=== PATIENT | female | born 1940 | race Caucasian/White ===

== ENCOUNTER 2018-11-09 08:14 | Emergency (ER) | payer MEDICARE, MEDICAID ==
[~2018-11-09] VITALS: Ht 157.5 cm; Wt 64.6 kg
[2018-11-09 08:38] VITALS: BP 143/82
[2018-11-09] MEDS ORDERED: ipratropium/albuterol 3ml nebule NEB ONE (08:55)
[2018-11-09] MEDS ORDERED: ALBU8HFA PO (09:51)
[2018-11-10] MEDS ORDERED: ASPI-1265 PO (15:18)
[2018-11-10] MEDS ORDERED: BUDE10.2 INH (15:18)
[2018-11-10] MEDS ORDERED: AMLO-93 PO (15:18)
[2018-11-10] MEDS ORDERED: SYN0.088T PO (15:18)
[2018-11-10] MEDS ORDERED: LISI-600 PO (15:18)
[2018-11-10] MEDS ORDERED: OMEP40CA37 PO (15:18)
[2018-11-10] MEDS ORDERED: AMLO5TAB PO (16:28)
== END 2018-11-09 10:22 | disposition home or self-care (01) ==
LOC: ER 08:14
DX: J44.1 Chronic obstructive pulmonary disease with (acute) exacerbation (principal); Z79.899 Other long term (current) drug therapy
CPT/HCPCS: 94640; 94760; 99283

== ENCOUNTER 2018-11-09 20:39 | Inpatient (IN) | payer MEDICARE, MEDICAID ==
[~2018-11-09] VITALS: Ht 165.1 cm; Wt 75.0 kg
[~2018-11-09 20:39] MED LIST: ALBU8HFA PO
[2018-11-09] MEDS ORDERED: ondansetron/PF 4mg/2ml inj IV ONE (20:45)
[2018-11-09] MEDS ORDERED: normal saline 1000ML IV soln IVB ONE (20:45)
[2018-11-09] MEDS ORDERED: iohexol 350MG/ML 100ml bottle IV ONE (20:49)
[2018-11-09] MEDS: fentaNYL/PF 50MCG/1 ML 2ML syringe IV PRN ×2 (20:56→23:18)
[2018-11-09] MEDS ORDERED: temazepam 15mg capsule PO PRN (21:00)
[2018-11-09 21:14] LABS: ALANINE AMINOTRANSFERASE 15 U/L (12-78); ALBUMIN 3.4 G/DL (3.4-5.0); ALBUMIN/GLOBULIN RATIO 1.1 (1.1-1.5); ALKALINE PHOSPHATASE 71 IU/L (46-116); ANION GAP 15 (8-16); ASPARTATE AMINO TRANSFERASE 23 U/L (10-37); BILIRUBIN,TOTAL 0.4 MG/DL (0.1-1.0); BLOOD UREA NITROGEN 15 MG/DL (7-18); BUN/CREATININE RATIO 14.4 (6.6-38.0); CALCIUM 8.3 MG/DL (8.5-10.1); CHLORIDE 104 MMOL/L (99-107); CREATININE 1.04 MG/DL (0.40-0.90); GLUCOSE 130 MG/DL (70-104); LIPASE 162 U/L (73-393); POTASSIUM 3.1 MMOL/L (3.5-5.1); SODIUM 139 MMOL/L (135-145); TOTAL CARBON DIOXIDE 20.5 MMOL/L (24-32); TOTAL PROTEIN 6.5 G/DL (6.4-8.2); eGFR 51 ML/MIN
[2018-11-09 21:43] LABS: BASOPHILS % (AUTO) 0.1 % (0-1); EOSINOPHILS # (AUTO) 0.2 X10'3 (0-0.9); EOSINOPHILS % (AUTO) 2.5 % (0-6); HEMATOCRIT 30.7 % (35.0-45.0); HEMOGLOBIN 10.5 g/dl (12.0-16.0); LYMPHOCYTES # (AUTO) 1.4 X10'3 (1.1-4.8); LYMPHOCYTES % (AUTO) 18.4 % (21-51); MEAN CORPUSCULAR HEMOGLOBIN 30.8 PG (27.0-31.0); MEAN CORPUSCULAR VOLUME 90.5 FL (78-98); MEAN PLATELET VOLUME 6.6 FL (7.4-10.4); MONOCYTES # (AUTO) 0.8 X10'3 (0-0.9); MONOCYTES % (AUTO) 9.8 % (2-12); NEUTROPHILS # (AUTO) 5.3 X10'3 (1.8-7.7); NEUTROPHILS % (AUTO) 69.2 % (42-75); PLATELET COUNT 241 X10'3 (140-440); RED CELL DISTRIBUTION WIDTH 13.3 % (11.5-14.5); WHITE BLOOD COUNT 7.7 X10'3 (4.5-11.0)
[2018-11-09] MEDS ORDERED: potassium Cl 20 mEq SR tablet PO STA (21:57)
[2018-11-09] MEDS ORDERED: aspirin 81mg tab.chew PO ONE (22:35)
[2018-11-09] MEDS ORDERED: heparin 10,000 units/1 ML INJ IV ONE ×2 (22:45→22:50)
[2018-11-09] MEDS ORDERED: heparin 10,000 units/1 ML INJ IV PRN (22:45)
[2018-11-09] MEDS: heparin 25,000 UNIT/250ml bag 250 ML IV SCH (23:11)
[2018-11-09 23:29] LABS: INR 1.1 INR; PARTIAL THROMBOPLASTIN TIME 24 SECONDS (22-32); PROTHROMBIN TIME 10.8 SECONDS (9.0-12.0)
[2018-11-09] MEDS ORDERED: potassium Cl 40MEQ/NS 500ml 500 ML IV PRN ×2 (23:45)
[2018-11-09] MEDS ORDERED: morphine 4 MG/ML inj SYRINge IV PRN (23:45)
[2018-11-09] MEDS ORDERED: magnesium hydroxide 30ml (MOM) UD suspension PO PRN (23:45)
[2018-11-09] MEDS ORDERED: bisacodyl 10mg suppository rectal RC PRN (23:45)
[2018-11-09] MEDS ORDERED: diphenhydrAMINE 25mg capsule PO PRN (23:45)
[2018-11-09] MEDS ORDERED: potassium Cl 20 mEq SR tablet PO PRN ×2 (23:45)
[2018-11-09] MEDS ORDERED: HYDROcodone/acetaminophen 10/325mg tab PO PRN (23:45)
[2018-11-09] MEDS ORDERED: metoclopramide 5 mg/ml inj IV PRN (23:45)
[2018-11-09] MEDS ORDERED: acetaminophen 325mg tablet PO PRN ×2 (23:45)
[2018-11-09] MEDS ORDERED: acetaminophen 650mg rectal suppository RC PRN (23:45)
[2018-11-09] MEDS ORDERED: diphenhydrAMINE 50 mg/ml inj IV PRN (23:45)
[2018-11-09] MEDS ORDERED: mag hydrox/Alum hydrox/simeth 30ml oral suspension PO PRN (23:45)
[2018-11-09] MEDS ORDERED: HYDROmorphone 1 mg/ml syringe IV PRN (23:45)
[2018-11-09] MEDS ORDERED: ondansetron/PF 4mg/2ml inj IV PRN (23:45)
[2018-11-09] MEDS ORDERED: loperamide 2mg capsule PO PRN (23:50)
[2018-11-10] VITALS (15 sets, daily range): BP systolic 102–140; BP diastolic 46–69
[2018-11-10 00:11] LABS: HEMOGLOBIN A1C 5.8 % (4.5-6.2)
[2018-11-10] MEDS: potassium Cl 20mEq in NS 1,000 ML IV SCH ×3 (00:57→21:46)
[2018-11-10 01:09] LABS: CREATINE KINASE 149 U/L (26-192)
[2018-11-10 02:16] LABS: CLARITY,URINE CLEAR (Clear); COLOR,URINE YELLOW (Yellow); GLUCOSE, URINE NEGATIVE (Neg); KETONES,URINE 15 mg/dl (Neg); LEUKOCYTE ESTERASE ,URINE NEGATIVE (Neg); NITRITES, URINE NEGATIVE (Neg); OCCULT BLOOD,URINE NEGATIVE (Neg); PH,URINE 5.5 (4.8-8.0); PROTEIN,URINE NEGATIVE (Neg); UROBILINOGEN,URINE 0.2 E.U/dL (0.2-1.0)
[2018-11-10 02:17] LABS: UA COLLECTION TYPE FOLEY CATH
[2018-11-10 05:44] LABS: ALANINE AMINOTRANSFERASE 16 U/L (12-78); ALBUMIN 3.2 G/DL (3.4-5.0); ALKALINE PHOSPHATASE 64 IU/L (46-116); ANION GAP 10 (8-16); ASPARTATE AMINO TRANSFERASE 18 U/L (10-37); BILIRUBIN,TOTAL 0.5 MG/DL (0.1-1.0); BLOOD UREA NITROGEN 13 MG/DL (7-18); BUN/CREATININE RATIO 16.3 (6.6-38.0); CALCIUM 7.9 MG/DL (8.5-10.1); CHLORIDE 106 MMOL/L (99-107); CHOL/HDL RATIO 3.4 (0.00-4.99); CHOLESTEROL 225 MG/DL (0-200); GLUCOSE 116 MG/DL (70-104); HDL CHOLESTEROL 66 MG/DL (35-60); LDL CHOLESTEROL 150 MG/DL (50-100); POTASSIUM 4.4 MMOL/L (3.5-5.1); SODIUM 139 MMOL/L (135-145); TOTAL CARBON DIOXIDE 22.9 MMOL/L (24-32); TOTAL PROTEIN 6.4 G/DL (6.4-8.2); TRIGLYCERIDES 18 MG/DL (20-135); eGFR 69 ML/MIN
[2018-11-10 05:48] LABS: BASOPHILS % (AUTO) 0.1 % (0-1); EOSINOPHILS # (AUTO) 0.1 X10'3 (0-0.9); EOSINOPHILS % (AUTO) 1.2 % (0-6); HEMOGLOBIN 12.3 g/dl (12.0-16.0); LYMPHOCYTES # (AUTO) 0.5 X10'3 (1.1-4.8); MEAN CORPUSCULAR HEMOGLOBIN 30.9 PG (27.0-31.0); MEAN CORPUSCULAR HGB CONC 34.1 % (33.0-36.5); MEAN CORPUSCULAR VOLUME 90.7 FL (78-98); MEAN PLATELET VOLUME 6.8 FL (7.4-10.4); MONOCYTES # (AUTO) 0.6 X10'3 (0-0.9); MONOCYTES % (AUTO) 5.6 % (2-12); NEUTROPHILS # (AUTO) 9.5 X10'3 (1.8-7.7); NEUTROPHILS % (AUTO) 88.1 % (42-75); PLATELET COUNT 274 X10'3 (140-440); RED BLOOD COUNT 3.97 X10'6 (4.20-5.60); RED CELL DISTRIBUTION WIDTH 13.4 % (11.5-14.5); WHITE BLOOD COUNT 10.8 X10'3 (4.5-11.0)
[2018-11-10] MEDS: heparin 25,000 UNIT/250ml bag 250 ML IV SCH (07:10)
[2018-11-10] MEDS ORDERED: pantoprazole 40 MG vial IV SCH (08:00)
[2018-11-10] MEDS: K and/or MAG REPLACEMENT MC SCH (08:00)
[2018-11-10] MEDS: docusate sod 100mg capsule PO SCH ×2 (08:00→19:00)
[2018-11-10] MEDS: lisinopril 5mg tablet PO SCH (08:00)
[2018-11-10] MEDS ORDERED: atorvastatin 10mg tablet PO SCH (08:00)
[2018-11-10] MEDS ORDERED: aspirin 81mg tab.chew PO SCH (08:00)
[2018-11-10] MEDS: nitroGLYCERIN 0.1mg/hour patch TD SCH (08:00)
[2018-11-10] MEDS ORDERED: aminophylline 250mg/10ml inj. IV PRN (09:10)
[2018-11-10] MEDS ORDERED: nitroGLYCERIN 0.4mg SUBLingual tab SL PRN (09:10)
[2018-11-10] MEDS ORDERED: LORazepam 0.5 MG tablet PO PRN (09:10)
[2018-11-10] MEDS ORDERED: regadenoson 0.4mg/5ml syringe IV ONE ×2 (09:10→12:51)
[2018-11-10] MEDS ORDERED: metoprolol tartrate 1mg/ml inj IV PRN (09:10)
[2018-11-10 09:13] LABS: C DIFF ANTIGEN NEGATIVE (NEGATIVE); C DIFF SPECIMEN=DIARRHEA? ACCEPTABLE; C DIFFICILE TOXINS A&B NEGATIVE (Neg)
[2018-11-10] MEDS ORDERED: ipratropium/albuterol 3ml nebule NEB PRN (09:15)
[2018-11-10 10:40] LABS: HEMATOCRIT 36.7 % (35.0-45.0); HEMOGLOBIN 12.4 g/dl (12.0-16.0); MEAN CORPUSCULAR HEMOGLOBIN 30.8 PG (27.0-31.0); MEAN CORPUSCULAR HGB CONC 33.7 % (33.0-36.5); MEAN CORPUSCULAR VOLUME 91.6 FL (78-98); PLATELET COUNT 263 X10'3 (140-440); RED BLOOD COUNT 4.01 X10'6 (4.20-5.60); RED CELL DISTRIBUTION WIDTH 13.5 % (11.5-14.5); WHITE BLOOD COUNT 11.6 X10'3 (4.5-11.0)
[2018-11-10] MEDS ORDERED: aminophylline inj. 10 ML IV ONE (12:51)
[2018-11-10] MEDS ORDERED: AMLO-93 PO (15:18)
[2018-11-10] MEDS ORDERED: BUDE10.2 INH (15:18)
[2018-11-10] MEDS ORDERED: ASPI-1265 PO (15:18)
[2018-11-10] MEDS ORDERED: OMEP40CA37 PO (15:18)
[2018-11-10] MEDS ORDERED: LISI-600 PO (15:18)
[2018-11-10] MEDS ORDERED: SYN0.088T PO (15:18)
[2018-11-10] MEDS: pantoprazole 40MG/NS 100ML BAG 100 ML IV SCH ×3 (15:19→20:49)
[2018-11-10 15:58] LABS: HEMATOCRIT 38.2 % (35.0-45.0); HEMOGLOBIN 12.8 g/dl (12.0-16.0); MEAN CORPUSCULAR HEMOGLOBIN 30.7 PG (27.0-31.0); MEAN CORPUSCULAR HGB CONC 33.6 % (33.0-36.5); MEAN CORPUSCULAR VOLUME 91.3 FL (78-98); MEAN PLATELET VOLUME 6.9 FL (7.4-10.4); PLATELET COUNT 270 X10'3 (140-440); RED BLOOD COUNT 4.18 X10'6 (4.20-5.60); RED CELL DISTRIBUTION WIDTH 13.3 % (11.5-14.5); WHITE BLOOD COUNT 11.2 X10'3 (4.5-11.0)
[2018-11-10] MEDS ORDERED: AMLO5TAB PO (16:28)
[2018-11-10] MEDS ORDERED: PEG 3350/Na sulf,bicarb,Cl/KCl oral sol 4 liter bottle PO ONE (18:50)
[2018-11-10] MEDS ORDERED: non-formulary drug (Budesonide/Formoterol Fumarate (Symbicort 160-4.5 Mcg Inhaler) 2 PUFFS INH SCH (20:00)
[2018-11-10] MEDS: metoprolol tartrate 12.5mg (1/2 tablet) PO SCH (20:07)
[2018-11-10] MEDS: albuterol 2.5 MG/3 ML nebule NEB SCH (20:09)
[2018-11-10] MEDS: budesonide 0.5mg/2ml UD nebule IH SCH (20:09)
[2018-11-10 22:23] LABS: HEMATOCRIT 36.2 % (35.0-45.0); HEMOGLOBIN 12.3 g/dl (12.0-16.0); MEAN CORPUSCULAR HEMOGLOBIN 30.9 PG (27.0-31.0); MEAN PLATELET VOLUME 6.6 FL (7.4-10.4); PLATELET COUNT 283 X10'3 (140-440); RED BLOOD COUNT 3.97 X10'6 (4.20-5.60); RED CELL DISTRIBUTION WIDTH 13.3 % (11.5-14.5); WHITE BLOOD COUNT 10.7 X10'3 (4.5-11.0)
[2018-11-11] VITALS (16 sets, daily range): BP systolic 116–153; BP diastolic 43–78
[2018-11-11] MEDS: potassium Cl 20mEq in NS 1,000 ML IV SCH ×3 (02:07→23:52)
[2018-11-11] MEDS: pantoprazole 40MG/NS 100ML BAG 100 ML IV SCH ×4 (02:07→19:28)
[2018-11-11 06:34] LABS: BASOPHILS % (AUTO) 0.6 % (0-1); EOSINOPHILS # (AUTO) 0.1 X10'3 (0-0.9); EOSINOPHILS % (AUTO) 0.9 % (0-6); HEMATOCRIT 31.6 % (35.0-45.0); HEMOGLOBIN 10.8 g/dl (12.0-16.0); LYMPHOCYTES # (AUTO) 0.9 X10'3 (1.1-4.8); LYMPHOCYTES % (AUTO) 9.9 % (21-51); MEAN CORPUSCULAR HEMOGLOBIN 30.9 PG (27.0-31.0); MEAN CORPUSCULAR HGB CONC 34.1 % (33.0-36.5); MEAN CORPUSCULAR VOLUME 90.6 FL (78-98); MEAN PLATELET VOLUME 6.4 FL (7.4-10.4); MONOCYTES # (AUTO) 1.1 X10'3 (0-0.9); MONOCYTES % (AUTO) 12.1 % (2-12); NEUTROPHILS # (AUTO) 6.8 X10'3 (1.8-7.7); NEUTROPHILS % (AUTO) 76.5 % (42-75); PLATELET COUNT 240 X10'3 (140-440); RED BLOOD COUNT 3.49 X10'6 (4.20-5.60); RED CELL DISTRIBUTION WIDTH 13.4 % (11.5-14.5); WHITE BLOOD COUNT 8.9 X10'3 (4.5-11.0)
[2018-11-11 06:55] LABS: ALANINE AMINOTRANSFERASE 15 U/L (12-78); ALBUMIN 2.7 G/DL (3.4-5.0); ALKALINE PHOSPHATASE 61 IU/L (46-116); ANION GAP 13 (8-16); ASPARTATE AMINO TRANSFERASE 20 U/L (10-37); BILIRUBIN,TOTAL 0.5 MG/DL (0.1-1.0); BLOOD UREA NITROGEN 7 MG/DL (7-18); BUN/CREATININE RATIO 11.3 (6.6-38.0); CALCIUM 7.2 MG/DL (8.5-10.1); CHLORIDE 107 MMOL/L (99-107); CREATININE 0.62 MG/DL (0.40-0.90); GLUCOSE 76 MG/DL (70-104); POTASSIUM 3.7 MMOL/L (3.5-5.1); SODIUM 140 MMOL/L (135-145); TOTAL PROTEIN 5.5 G/DL (6.4-8.2); eGFR > 90 ML/MIN
[2018-11-11] MEDS: budesonide 0.5mg/2ml UD nebule IH SCH ×2 (08:00→20:06)
[2018-11-11] MEDS: docusate sod 100mg capsule PO SCH ×2 (08:00→20:00)
[2018-11-11] MEDS: nitroGLYCERIN 0.1mg/hour patch TD SCH (08:00)
[2018-11-11] MEDS ORDERED: levoTHYROXINE 88mcg tablet PO SCH (08:00)
[2018-11-11] MEDS: albuterol 2.5 MG/3 ML nebule NEB SCH ×4 (08:00→20:06)
[2018-11-11] MEDS: lisinopril 5mg tablet PO SCH (08:00)
[2018-11-11] MEDS: atorvastatin 20mg tablet PO SCH (08:00)
[2018-11-11] MEDS: K and/or MAG REPLACEMENT MC SCH (08:00)
[2018-11-11] MEDS: metoprolol tartrate 12.5mg (1/2 tablet) PO SCH (09:32)
[2018-11-11] MEDS ORDERED: MIDAZolam 5mg/5ml vial ONE (11:20)
[2018-11-11] MEDS ORDERED: fentaNYL/PF 50MCG/1 ML 2ML syringe ONE (11:20)
[2018-11-11] MEDS ORDERED: LIDOcaine Viscous 15ml cup ONE (12:14)
[2018-11-11] MEDS: diltiazem 30mg tablet PO SCH ×2 (14:36→20:05)
[2018-11-11 17:13] LABS: HEMATOCRIT 30.2 % (35.0-45.0); HEMOGLOBIN 10.2 g/dl (12.0-16.0); MEAN CORPUSCULAR HEMOGLOBIN 30.9 PG (27.0-31.0); MEAN CORPUSCULAR HGB CONC 33.8 % (33.0-36.5); MEAN CORPUSCULAR VOLUME 91.4 FL (78-98); MEAN PLATELET VOLUME 6.8 FL (7.4-10.4); PLATELET COUNT 220 X10'3 (140-440); RED BLOOD COUNT 3.31 X10'6 (4.20-5.60); RED CELL DISTRIBUTION WIDTH 13.4 % (11.5-14.5); WHITE BLOOD COUNT 10.4 X10'3 (4.5-11.0)
[2018-11-11 22:25] LABS: HEMOGLOBIN 9.7 g/dl (12.0-16.0); MEAN CORPUSCULAR HEMOGLOBIN 30.8 PG (27.0-31.0); MEAN CORPUSCULAR HGB CONC 33.6 % (33.0-36.5); MEAN CORPUSCULAR VOLUME 91.7 FL (78-98); MEAN PLATELET VOLUME 6.5 FL (7.4-10.4); PLATELET COUNT 200 X10'3 (140-440); RED BLOOD COUNT 3.16 X10'6 (4.20-5.60); RED CELL DISTRIBUTION WIDTH 13.2 % (11.5-14.5); WHITE BLOOD COUNT 8.9 X10'3 (4.5-11.0)
[2018-11-12] VITALS (11 sets, daily range): BP systolic 128–142; BP diastolic 49–88
[2018-11-12] MEDS: diltiazem 30mg tablet PO SCH ×4 (02:12→19:25)
[2018-11-12] MEDS: pantoprazole 40MG/NS 100ML BAG 100 ML IV SCH ×6 (06:00→22:48)
[2018-11-12] MEDS: albuterol 2.5 MG/3 ML nebule NEB SCH ×5 (07:00→20:56)
[2018-11-12 07:49] LABS: BASOPHILS % (AUTO) 0.4 % (0-1); EOSINOPHILS # (AUTO) 0.1 X10'3 (0-0.9); EOSINOPHILS % (AUTO) 1.6 % (0-6); HEMATOCRIT 31.5 % (35.0-45.0); HEMOGLOBIN 10.5 g/dl (12.0-16.0); LYMPHOCYTES # (AUTO) 0.8 X10'3 (1.1-4.8); LYMPHOCYTES % (AUTO) 7.9 % (21-51); MEAN CORPUSCULAR HEMOGLOBIN 30.7 PG (27.0-31.0); MEAN CORPUSCULAR HGB CONC 33.4 % (33.0-36.5); MEAN CORPUSCULAR VOLUME 91.9 FL (78-98); MEAN PLATELET VOLUME 7.1 FL (7.4-10.4); MONOCYTES # (AUTO) 0.7 X10'3 (0-0.9); MONOCYTES % (AUTO) 7.3 % (2-12); NEUTROPHILS % (AUTO) 82.8 % (42-75); PLATELET COUNT 192 X10'3 (140-440); RED BLOOD COUNT 3.42 X10'6 (4.20-5.60); RED CELL DISTRIBUTION WIDTH 13.6 % (11.5-14.5); WHITE BLOOD COUNT 9.6 X10'3 (4.5-11.0)
[2018-11-12] MEDS: docusate sod 100mg capsule PO SCH ×2 (07:49→19:27)
[2018-11-12 07:58] LABS: ALANINE AMINOTRANSFERASE 13 U/L (12-78); ALBUMIN 2.7 G/DL (3.4-5.0); ALBUMIN/GLOBULIN RATIO 0.9 (1.1-1.5); ALKALINE PHOSPHATASE 52 IU/L (46-116); ANION GAP 13 (8-16); ASPARTATE AMINO TRANSFERASE 18 U/L (10-37); BILIRUBIN,TOTAL 0.4 MG/DL (0.1-1.0); BLOOD UREA NITROGEN 3 MG/DL (7-18); BUN/CREATININE RATIO 4.8 (6.6-38.0); CALCIUM 7.8 MG/DL (8.5-10.1); CHLORIDE 107 MMOL/L (99-107); CREATININE 0.63 MG/DL (0.40-0.90); GLUCOSE 73 MG/DL (70-104); POTASSIUM 3.7 MMOL/L (3.5-5.1); SODIUM 138 MMOL/L (135-145); TOTAL CARBON DIOXIDE 18.3 MMOL/L (24-32); TOTAL PROTEIN 5.7 G/DL (6.4-8.2); eGFR > 90 ML/MIN
[2018-11-12] MEDS: K and/or MAG REPLACEMENT MC SCH (08:00)
[2018-11-12] MEDS: nitroGLYCERIN 0.1mg/hour patch TD SCH (08:00)
[2018-11-12] MEDS: budesonide 0.5mg/2ml UD nebule IH SCH ×3 (08:00→20:56)
[2018-11-12] MEDS: atorvastatin 20mg tablet PO SCH (08:05)
[2018-11-12] MEDS: levoTHYROXINE 100mcg tablet PO SCH (08:06)
[2018-11-12] MEDS: lisinopril 5mg tablet PO SCH (08:08)
[2018-11-12] MEDS ORDERED: LIDOcaine 1% (10mg/ml)w/preservative injection 20ml MDV ONE (08:59)
[2018-11-12] MEDS ORDERED: iohexol 350MG/ML 100ml bottle IV ONE (08:59)
[2018-11-12] MEDS ORDERED: fentaNYL/PF 50MCG/1 ML 2ML syringe ONE (08:59)
[2018-11-12] MEDS ORDERED: iohexol 350 MG/ML 50ML vial IV ONE (08:59)
[2018-11-12] MEDS ORDERED: midazolam 2 mg/2 ml injection ONE (08:59)
[2018-11-12] MEDS: potassium Cl 20mEq in NS 1,000 ML IV SCH ×2 (14:46→21:41)
[2018-11-13] MEDS: diltiazem 30mg tablet PO SCH ×2 (01:36→08:00)
[2018-11-13] MEDS: pantoprazole 40MG/NS 100ML BAG 100 ML IV SCH ×2 (01:41→06:46)
[2018-11-13 02:00] VITALS: BP 134/57
[2018-11-13 07:09] LABS: BASOPHILS % (AUTO) 0.6 % (0-1); EOSINOPHILS # (AUTO) 0.2 X10'3 (0-0.9); EOSINOPHILS % (AUTO) 3.2 % (0-6); HEMATOCRIT 30.2 % (35.0-45.0); HEMOGLOBIN 10.1 g/dl (12.0-16.0); LYMPHOCYTES # (AUTO) 0.8 X10'3 (1.1-4.8); LYMPHOCYTES % (AUTO) 11.7 % (21-51); MEAN CORPUSCULAR HEMOGLOBIN 30.6 PG (27.0-31.0); MEAN CORPUSCULAR HGB CONC 33.4 % (33.0-36.5); MEAN CORPUSCULAR VOLUME 91.6 FL (78-98); MEAN PLATELET VOLUME 7.4 FL (7.4-10.4); MONOCYTES # (AUTO) 0.7 X10'3 (0-0.9); MONOCYTES % (AUTO) 10.3 % (2-12); NEUTROPHILS # (AUTO) 5.2 X10'3 (1.8-7.7); NEUTROPHILS % (AUTO) 74.2 % (42-75); PLATELET COUNT 168 X10'3 (140-440); RED CELL DISTRIBUTION WIDTH 13.4 % (11.5-14.5)
[2018-11-13 07:12] VITALS: BP 136/64
[2018-11-13] MEDS ORDERED: LEVO100T9 PO (07:37)
[2018-11-13] MEDS ORDERED: ATOR40TA PO (07:37)
[2018-11-13 07:38] LABS: ALANINE AMINOTRANSFERASE 16 U/L (12-78); ALBUMIN 2.7 G/DL (3.4-5.0); ALBUMIN/GLOBULIN RATIO 0.9 (1.1-1.5); ALKALINE PHOSPHATASE 55 IU/L (46-116); ANION GAP 14 (8-16); ASPARTATE AMINO TRANSFERASE 27 U/L (10-37); BILIRUBIN,TOTAL 0.5 MG/DL (0.1-1.0); BLOOD UREA NITROGEN 4 MG/DL (7-18); BUN/CREATININE RATIO 6.3 (6.6-38.0); CALCIUM 7.8 MG/DL (8.5-10.1); CHLORIDE 107 MMOL/L (99-107); CREATININE 0.64 MG/DL (0.40-0.90); GLUCOSE 63 MG/DL (70-104); POTASSIUM 3.6 MMOL/L (3.5-5.1); SODIUM 141 MMOL/L (135-145); TOTAL CARBON DIOXIDE 19.9 MMOL/L (24-32); TOTAL PROTEIN 5.8 G/DL (6.4-8.2); eGFR 90 ML/MIN
[2018-11-13] MEDS: nitroGLYCERIN 0.1mg/hour patch TD SCH (07:57)
[2018-11-13] MEDS: docusate sod 100mg capsule PO SCH (07:57)
[2018-11-13] MEDS: levoTHYROXINE 100mcg tablet PO SCH (08:00)
[2018-11-13] MEDS: atorvastatin 20mg tablet PO SCH (08:00)
[2018-11-13] MEDS: lisinopril 5mg tablet PO SCH (08:00)
== END 2018-11-13 09:24 | disposition home or self-care (01) | DRG 280 ==
LOC: ER 20:39 → ED HOLD 23:41 → ORTHO 4S 11-10 07:00
PROVIDERS: ADMIT Family Medicine; ATTEND Family Medicine
PROC: B32T1ZZ Computerized Tomography (CT Scan) of Left Pulmonary Artery using Low Osmolar Contrast (ICD-10-PCS; 2018-11-09)
PROC: B3201ZZ Computerized Tomography (CT Scan) of Thoracic Aorta using Low Osmolar Contrast (ICD-10-PCS; 2018-11-09)
PROC: B32S1ZZ Computerized Tomography (CT Scan) of Right Pulmonary Artery using Low Osmolar Contrast (ICD-10-PCS; 2018-11-09)
PROC: B4201ZZ Computerized Tomography (CT Scan) of Abdominal Aorta using Low Osmolar Contrast (ICD-10-PCS; 2018-11-09)
PROC: B4241ZZ Computerized Tomography (CT Scan) of Superior Mesenteric Artery using Low Osmolar Contrast (ICD-10-PCS; 2018-11-09)
PROC: B4281ZZ Computerized Tomography (CT Scan) of Bilateral Renal Arteries using Low Osmolar Contrast (ICD-10-PCS; 2018-11-09)
PROC: B4211ZZ Computerized Tomography (CT Scan) of Celiac Artery using Low Osmolar Contrast (ICD-10-PCS; 2018-11-09)
PROC: 4A02XM4 Measurement of Cardiac Total Activity, External Approach (ICD-10-PCS; 2018-11-10)
PROC: 3E033HZ Introduction of Radioactive Substance into Peripheral Vein, Percutaneous Approach (ICD-10-PCS; 2018-11-10)
PROC: 0DBL8ZX Excision of Transverse Colon, Via Natural or Artificial Opening Endoscopic, Diagnostic (ICD-10-PCS; 2018-11-11)
PROC: 0DBP8ZZ Excision of Rectum, Via Natural or Artificial Opening Endoscopic (ICD-10-PCS; 2018-11-11)
PROC: 4A023N7 Measurement of Cardiac Sampling and Pressure, Left Heart, Percutaneous Approach (ICD-10-PCS; principal; 2018-11-12)
PROC: B2111ZZ Fluoroscopy of Multiple Coronary Arteries using Low Osmolar Contrast (ICD-10-PCS; 2018-11-12)
PROC: B41F1ZZ Fluoroscopy of Right Lower Extremity Arteries using Low Osmolar Contrast (ICD-10-PCS; 2018-11-12)
PROC: B2151ZZ Fluoroscopy of Left Heart using Low Osmolar Contrast (ICD-10-PCS; 2018-11-12)
DX: I21.A1 Myocardial infarction type 2 (principal); I50.23 Acute on chronic systolic (congestive) heart failure; K55.9 Vascular disorder of intestine, unspecified; N17.9 Acute kidney failure, unspecified; K57.90 Diverticulosis of intestine, part unspecified, without perforation or abscess without bleeding; D64.9 Anemia, unspecified; E78.5 Hyperlipidemia, unspecified; F41.9 Anxiety disorder, unspecified; J44.9 Chronic obstructive pulmonary disease, unspecified; R55 Syncope and collapse; F39 Unspecified mood [affective] disorder; E86.1 Hypovolemia; E87.6 Hypokalemia; R91.1 Solitary pulmonary nodule; E89.0 Postprocedural hypothyroidism; K62.1 Rectal polyp; K63.5 Polyp of colon; Z77.22 Contact with and (suspected) exposure to environmental tobacco smoke (acute) (chronic); Z90.49 Acquired absence of other specified parts of digestive tract; Z79.899 Other long term (current) drug therapy; Z87.891 Personal history of nicotine dependence
CPT/HCPCS: 36415; 45380; 70450; 71275; 74174; 78452; 80053; 80061; 81003; 82550; 83036; 83690; 83735; 83880; 84100; 84439; 84443; 84480; 84484; 85025; 85027; 85610; 85730; 86885; 86900; 86901; 87045; 87046; 87070; 87324; 87328; 87329; 87336; 87449; 88305; 89055; 93005; 93017; 93306; 93458; 93880; 94640; 94760; 96361; 96374; 99152; 99153; 99291; A4620; A6257; A9500; C1760; C1769; C9113; G0378; J0280; J1644; J2001; J2250; J2405; J3010; J7030; J7626; Q9967